=== PATIENT | male | born 1965 | race Caucasian/White ===

== ENCOUNTER 2023-07-01 10:29 | Outpatient (CLI) | payer OTHER ==
[2023-07-01 11:41] LABS: HEMATOCRIT 42.3 % (39.0-48.0); HEMOGLOBIN 14.5 g/dL (13-16.00); MEAN CELL VOLUME 87.2 fL (80.0-100.00); MEAN CORPUSCULAR HEMOGLOBIN 29.9 pg (27.00-32.0); MEAN CORPUSCULAR HGB CONC 34.2 g/dl (32.0-36.0); PLATELET COUNT 203 K/uL (150-450); RED BLOOD COUNT 4.85 M/uL (4.00-6.00); RED CELL DISTRIBUTION WIDTH 13.8 % (11.5-14.5)
[2023-07-01 12:27] LABS: ALBUMIN 4.1 gm/dL (3.4-5.0); BILIRUBIN TOTAL 1.07 mg/dL (0.3-1.2); CALCIUM 8.9 mg/dL (8.5-10.1); CHOL HDL RATIO 2.5 (0-5.0); CREATININE SERUM 1.03 mg/dL (0.70-1.30); FREE TRIODOTIRONINE 2.78 pg/ml (2.18-3.98); GFR 74.98; GLOBULINA 2.6 G/DL (2.4-3.5); POTASSIUM 4.13 mEq/L (3.5-5.1); PROSTATIC SPECIFIC ANTIGEN 0.732 NG/ML (0.010-4.00); T4 FREE 1.15 NG/ML (0.76-1.46); TOTAL PROTEIN 6.7 gm/dL (6.4-8.2); TSH 0.822 uIU/mL (0.358-3.74)
== END 2023-07-01 10:35 | disposition home or self-care (01) ==
LOC: LAB 10:29
PROVIDERS: ATTEND General Practice
DX: I11.9 Hypertensive heart disease without heart failure (principal); E55.9 Vitamin D deficiency, unspecified; Z12.11 Encounter for screening for malignant neoplasm of colon; R30.0 Dysuria; E06.9 Thyroiditis, unspecified; E11.8 Type 2 diabetes mellitus with unspecified complications; E78.2 Mixed hyperlipidemia; E16.2 Hypoglycemia, unspecified; D64.9 Anemia, unspecified; N40.0 Benign prostatic hyperplasia without lower urinary tract symptoms